=== PATIENT | female | born 1955 | race Caucasian/White ===

== ENCOUNTER 2016-06-18 17:18 | Emergency (ER) | payer OTHER ==
--- NOTE | 2016-06-18 17:55 | EDPHY ---
H & P Stated Complaint: Right Wrist Injury, Fall Time Seen by Provider: 06/18/16 17:20 HPI/ROS: CHIEF COMPLAINT: right wrist pain HISTORY OF PRESENT ILLNESS: 60-year-old female presents emergency department complaining of right wrist pain. Patient slipped on the ice today and fell on right outstretched hand, she had immediate pain and deformity in this right wrist. She denies head strike, no loss of consciousness, no neck pain. She denies elbow pain or shoulder pain, no numbness or tingling in her fingers. She is [id number], denies previous injury to this wrist. REVIEW OF SYSTEMS: A comprehensive 10 point review of systems is otherwise negative aside from elements mentioned in the history of present illness. Source: Patient Exam Limitations: No limitations - Personal History Current Tetanus Diphtheria and Acellular Pertussis (TDAP): Yes Tetanus Vaccine Date: Within 10 years - Medical/Surgical History Hx Asthma: No Hx Chronic Respiratory Disease: No Hx Diabetes: No Hx Cardiac Disease: No Hx Renal Disease: No Hx Cirrhosis: No Hx Alcoholism: No Hx HIV/AIDS: No Hx Splenectomy or Spleen Trauma: No Other PMH: exercise induced asthma/migraines - Social History Smoking Status: Never smoked - Physical Exam Exam: Physical Exam Gen: Alert and Oriented, grimacing HEENT: PERRL, moist mucous membranes NECK: no C-spine tenderness CV: regular rate and regular rhythm PULM: CTAB, no wheezes NEURO: Neurologically grossly intact EXTREMITIES: Right wrist with obvious deformity, diffuse tenderness to palpation , 2+ radial pulses, good radial motor and sensory, cap refill less than 2 seconds. No elbow tenderness SKIN: no rash or break in skin on exposed skin PSYCH: answers questions appropriately. Constitutional: Initial Vital Signs Temperature (C) 36.7 C 06/18/16 17:22 Heart Rate 53 L 06/18/16 17:22 Respiratory Rate 16 06/18/16 17:22 Blood Pressure 137/91 H 06/18/16 17:22 O2 Sat (%) 100 06/18/16 17:22 O2 Delivery Mode Room Air Allergies/Adverse Reactions: cephalexin monohydrate [From Keflex] Allergy (Verified 12/13/15 13:14) Penicillins Allergy (Verified 12/13/15 13:14) Sulfa (Sulfonamide Antibiotics) Allergy (Verified 12/13/15 13:14) Home Medications: Medication Instructions Recorded Celexa 03/11/10 Levothyroxine 03/11/10 2 Migraine Medicine 12/13/15 Ondansetron Odt [Zofran Odt] 4 mg PO Q6-8PRN PRN #8 tab 06/18/16 oxyCODONE/APAP 5/325 [Percocet 1 - 2 tab PO Q6H PRN #12 tab 06/18/16 5/325] Medical Decision Making - Diagnostics Imaging: Right wrist x-ray independently reviewed by me- Impression: Moderately comminuted intra-articular fracture of the distal radius with dorsal angulation and displacement. Dictated By: Bryce Cormier MD Right elbow x-ray independently reviewed by me-no fracture Post reduction right wrist x-ray independently reviewed by me- Procedures: Procedure: Fracture reduction. Indication: Displaced fracture distal radius. Risks, benefits, alternatives discussed with the patient. Consent was obtained. The distal radius fracture was anesthetized using 10 mL of 1% lidocaine without epinephrine hematoma block into the fracture site. Patient was placed in a finger trap and hung with traction for 5 minutes, she was then removed from the finger traps, traction and manipulation manually reduce the fracture, she was placed in a reverse sugar-tong splint. The patient has a normal neurovascular exam distal to the injury post reduction. Patient tolerated the procedure well and is significantly more comfortable. Post reduction x-ray demonstrates reduction of the fracture to the anatomic position. The procedure was performed by myself. A reverse sugar-tong Ortho Glass was applied. After application of the splint , I returned and re-examined the patient. The splint was adequately immobilizing the joint. The patients circulation and sensation were intact distal to the splint. ED Course/Re-evaluation: IV established, patient is given 50 mcg of fentanyl and 4 mg of Zofran for pain and nausea. 6pm-I spoke with Dr. Govea about this patient's fracture. He is recommending reduction and splinting and he will follow up in clinic this week. 630pm-hematoma block performed, distal radius reduced with manual traction and manipulation, reverse sugar-tong splint placed, patient tolerated this well. She will be discharged home with pain medication and information for follow-up for Dr. Henri Saavedra. She is given strict return precautions for any neurovascular compromise. - Data Points Medications Given: Discontinued Medications Fentanyl (Sublimaze) 50 mcg IVP EDNOW ONE Stop: 06/18/16 17:58 Last Admin: 06/18/16 18:10 Dose: 50 mcg Sodium Chloride (Ns) 1,000 mls @ 0 mls/hr IV ONCE ONE PRN Reason: Wide Open Stop: 06/18/16 17:58 Last Admin: 06/18/16 18:05 Dose: 1,000 mls Ondansetron HCl (Zofran) 4 mg IVP EDNOW ONE Stop: 06/18/16 17:58 Last Admin: 06/18/16 18:10 Dose: 4 mg Departure - Departure Disposition: Home, Routine, Self-Care Clinical Impression: Distal radius fracture, right Condition: Good Instructions: Wrist Fracture in Adults (ED) Additional Instructions: Rest, ice, strict elevation above the level of your heart, take 600 mg of ibuprofen every 8 hours with food for 3-5 days, take Percocet as needed for severe pain, take Zofran as needed for nausea. Call office 1st thing in the morning to schedule a follow-up appointment. Return to the emergency department for any numbness or tingling in her hand, discoloration of your hand, pain that is not controlled, any other questions or concerns. Referrals: Xiang Govea MD [Medical Doctor] - As per Instructions (Orthopedist on-call) Prescriptions: oxyCODONE/APAP 5/325 [Percocet 5/325] 1 - 2 tab PO Q6H PRN #12 tab PRN Reason: Pain, Severe Ondansetron Odt [Zofran Odt] 4 mg PO Q6-8PRN PRN #8 tab PRN Reason: Nausea/Vomiting, Can'T Take Po
[2016-06-18] MEDS ORDERED: fentaNYL 100 MCG/2 ML INJ IVP ONE (17:57)
[2016-06-18] MEDS ORDERED: ONDANSETRON 4 MG/2 ML VIAL IVP ONE (17:57)
[2016-06-18] MEDS ORDERED: NS 1,000 ML IV ONE (17:57)
--- NOTE | 2016-06-18 18:25 | DX ---
Right wrist 3 views at 1804 History: Fall on ice today, pain. Comparison: None available. Findings: There is a transverse moderately comminuted intra-articular fracture of the distal radial m etaphysis with moderate dorsal angulation and one half shaft widths dorsal displacement. Alignment is normal. There is diffuse soft tissue swelling. Impression: Moderately comminuted intra-articular fracture of the distal radius with dorsal angulatio n and displacement.
--- NOTE | 2016-06-18 18:28 | DX ---
Right elbow 4 views History: Fall on ice today. Comparison: None available. Findings: No fracture is identified. Alignment is normal. Bone mineralization is normal. There is no significant degenerative change. There is no joint effusion. Impression: No acute osseous findings.
--- NOTE | 2016-06-18 19:28 | DX ---
Right wrist - 2 views at 1849 hours INDICATION: Post reduction. COMPARISON: Right wrist series from less than one hour prior. FINDINGS: The comminuted intra-articular distal radius fracture has been reduced into near anatomic a lignment and placed in a fiberglass splint. IMPRESSION: Near anatomic reduction of comminuted intra-articular distal radius fracture now in splin t.
[2016-06-18 19:29] VITALS: BP 128/74; PULSE 70; RESP 14; TEMP 97.9; O2SAT 94
== END 2016-06-18 19:28 | disposition home or self-care (01) ==
PROC: 0PSHXZZ Reposition Right Radius, External Approach (ICD-10-PCS; principal; 2016-06-18)
DX: S52.571A Other intraarticular fracture of lower end of right radius, initial encounter for closed fracture (principal); W00.0XXA Fall on same level due to ice and snow, initial encounter
CPT/HCPCS: 96374; J2405; J3010

== ENCOUNTER 2016-11-18 19:49 | Emergency (ER) | payer OTHER ==
[2016-11-18] MEDS ORDERED: ONDANSETRON DISINTEGRATING 4 MG TAB ONE (19:58)
[2016-11-18] MEDS ORDERED: ONDANSETRON DISINTEGRATING 4 MG TAB PO ONE (19:59)
--- NOTE | 2016-11-18 20:15 | EDPHY ---
H & P Stated Complaint: ROD, n/v HPI/ROS: CHIEF COMPLAINT: Headache HISTORY OF PRESENT ILLNESS: This is a 61-year-old female with a history of migraine headaches usually relieved by Excedrin migraine medication. She has had a headache today for the last 7 hours. She has taken Excedrin migraine with no relief. She reports nausea, vomiting, photophobia, and phonophobia. Her headache is bitemporal in pounding. It is typical of her previous migraine headaches. She does not usually need emergency department treatment. She denies any recent fever,neck stiffness, confusion, new weakness, or new numbness. REVIEW OF SYSTEMS: A ten point review of systems was performed and is negative with the exception of the items mentioned in the HPI. Source: Patient, Family - Personal History Current Tetanus/Diphtheria Vaccine: Unsure Current Tetanus Diphtheria and Acellular Pertussis (TDAP): Unsure Tetanus Vaccine Date: Within 10 years - Medical/Surgical History Hx Asthma: Yes Hx Chronic Respiratory Disease: No Hx Diabetes: No Hx Cardiac Disease: No Hx Renal Disease: No Hx Cirrhosis: No Hx Alcoholism: No Hx HIV/AIDS: No Hx Splenectomy or Spleen Trauma: No Other PMH: exercise induced asthma/migraines, , groin nodule removal, thyroidectomy, knee and wrist surgery - Social History Smoking Status: Never smoked - Physical Exam Exam: General Appearance: Alert. Vital signs reviewed. Sitting in a darkened room. Eyes: Pupils equal and round. ENT, Mouth: Mucous membranes are moist. Neck: No lymphadenopathy, supple. No meningismus. Respiratory: Lungs are clear to auscultation; no wheezes, rales, or rhonchi. Cardiovascular: Regular rate and rhythm; no murmur, rub, or gallop. Gastrointestinal: Abdomen is soft and nontender, no masses or organomegaly, bowel sounds normal. Skin: Warm and dry, no rashes on exposed skin, normal color. Back: Nontender to palpation over the thoracolumbar spine. No CVAT. Extremities: No lower extremity edema, no calf tenderness or swelling. Neurological: Alert and oriented. Moving all four extremities easily and equally. [place]. EOMI. Facial expressions symmetric. Tongue midline. Strength is 5 over 5 bilaterally with testing of all major motor groups. Sensation is intact to light touch over all 4 extremities. Deep tendon reflexes are 2+ in the biceps and knees bilaterally. Psychiatric: Normal affect. Constitutional: Initial Vital Signs Temperature (C) 36.8 C 11/18/16 19:54 Heart Rate 61 11/18/16 19:54 Respiratory Rate 48 H 11/18/16 19:54 Blood Pressure 131/106 H 11/18/16 19:54 O2 Sat (%) 99 11/18/16 19:54 O2 Delivery Mode Room Air Allergies/Adverse Reactions: cephalexin monohydrate [From Keflex] Allergy (Verified 11/18/16 19:53) Penicillins Allergy (Verified 11/18/16 19:53) Sulfa (Sulfonamide Antibiotics) Allergy (Verified 11/18/16 19:53) Home Medications: Medication Instructions Recorded Celexa 03/11/10 Levothyroxine 03/11/10 Medical Decision Making ED Course/Re-evaluation: 61-year-old female typical migraine. She received 1 L normal saline, IV Reglan 10 mg, Toradol IV 30 mg, and Benadryl IV 25 mg. She was re-evaluated at 9:30 p.m.. She has been sleeping. She tells me that she is feeling better. She would like to rest a bit longer before returning home. 10:20 p.m.: She is up to the bathroom, feeling much better. She feels well enough to return home. She is discharged in improved condition. Differential Diagnosis: Headache including but not limited to subarachnoid hemorrhage, migraine headache , tension headache and infectious causes such as meningitis, pharyngitis and sinusitis. - Data Points Medications Given: Discontinued Medications Diphenhydramine HCl (Benadryl Injection) 25 mg IVP EDNOW ONE Stop: 11/18/16 20:22 Last Admin: 11/18/16 20:40 Dose: 25 mg Sodium Chloride (Ns) 1,000 mls @ 0 mls/hr IV ONCE ONE; Wide Open PRN Reason: Protocol Stop: 11/18/16 20:22 Last Admin: 11/18/16 20:30 Dose: 1,000 mls Ketorolac Tromethamine (Toradol) 30 mg IVP EDNOW ONE Stop: 11/18/16 20:22 Last Admin: 11/18/16 20:35 Dose: 30 mg Metoclopramide HCl (Reglan Injection) 10 mg IVP EDNOW ONE Stop: 11/18/16 20:22 Last Admin: 11/18/16 20:38 Dose: 10 mg Ondansetron HCl (Zofran Odt) 4 mg PO EDNOW ONE Stop: 11/18/16 20:00 Last Admin: 11/18/16 20:00 Dose: 4 mg Departure - Departure Disposition: Home, Routine, Self-Care Clinical Impression: Migraine headache Qualifiers: Migraine type: other Status migrainosus presence: without status migrainosus Intractability: not intractable Qualified Code(s): G43.809 - Other migraine, not intractable, without status migrainosus Condition: Good Instructions: Migraine Headache (ED) Referrals: INGRID MCGEE [Medical Doctor] - As per Instructions
[2016-11-18] MEDS ORDERED: NS 1,000 ML IV ONE (20:21)
[2016-11-18] MEDS ORDERED: METOCLOPRAMIDE 10 MG/2 ML VIAL IVP ONE (20:21)
[2016-11-18] MEDS ORDERED: KETOROLAC 30 MG/1 ML SDV IVP ONE (20:21)
[2016-11-18 22:22] VITALS: RESP 16; O2SAT 98
[2016-11-18 22:30] VITALS: BP 129/76; PULSE 61; TEMP 97.9
== END 2016-11-18 22:29 | disposition home or self-care (01) ==
DX: G43.809 Other migraine, not intractable, without status migrainosus (principal); J45.909 Unspecified asthma, uncomplicated; E86.9 Volume depletion, unspecified
CPT/HCPCS: 96374; J1200; J1885; J2765

== ENCOUNTER → 2017-02-19 | Outpatient (CLI) | payer OTHER | LOC: FIMAGING 08:15 | PROVIDERS: ATTEND Family Medicine | DX: Z12.31 Encounter for screening mammogram for malignant neoplasm of breast (principal); Z80.3 Family history of malignant neoplasm of breast | CPT/HCPCS: G0202 ==

== ENCOUNTER → 2018-03-13 | Outpatient (CLI) | payer OTHER | LOC: FIMAGING 12:34 | PROVIDERS: ATTEND Family Medicine | DX: Z12.31 Encounter for screening mammogram for malignant neoplasm of breast (principal); Z80.3 Family history of malignant neoplasm of breast ==

== ENCOUNTER 2018-08-24 18:38 | Emergency (ER) | payer OTHER ==
--- NOTE | 2018-08-24 18:41 | EDPHY ---
H & P Time Seen by Provider: 08/24/18 18:40 - Personal History Tetanus Vaccine Date: Within 10 years - Medical/Surgical History Hx Asthma: Yes Hx Chronic Respiratory Disease: No Hx Diabetes: No Hx Cardiac Disease: No Hx Renal Disease: No Hx Cirrhosis: No Hx Alcoholism: No Hx HIV/AIDS: No Hx Splenectomy or Spleen Trauma: No Other PMH: exercise induced asthma/migraines, , groin nodule removal, thyroidectomy, knee and wrist surgery - Social History Smoking Status: Never smoked Constitutional: Initial Vital Signs Temperature (C) 36.9 C 08/24/18 18:45 Heart Rate 65 08/24/18 18:45 Respiratory Rate 16 08/24/18 18:45 Blood Pressure 183/94 H 08/24/18 18:45 O2 Sat (%) 97 08/24/18 18:45 O2 Delivery Mode Room Air Allergies/Adverse Reactions: cephalexin monohydrate [From Keflex] Allergy (Verified 11/18/16 19:53) Penicillins Allergy (Verified 11/18/16 19:53) Sulfa (Sulfonamide Antibiotics) Allergy (Verified 11/18/16 19:53) Home Medications: Medication Instructions Recorded Celexa 03/11/10 Levothyroxine 03/11/10 Fioricet (*) 08/24/18 Zofran 08/24/18 Medical Decision Making ED Course/Re-evaluation: CHIEF COMPLAINT: Migraine headache HISTORY OF PRESENT ILLNESS: The patient is a 62 y/o female with a history of migraines complaining of a migraine today. For the last 5 to 6 years she has had migraines. Due to the migraines she takes Fioricet and Zofran as prescribed by her PCP. Today she developed a migraine, but her medications did not alleviate it. She deneis seeing a neurologist for her migraines. No fever, body aches, lightheadedness, chest pain, heart palpitations, shortness of breath, cough, abdominal pain, urinary or bowel complaints, numbness, paresthesias. REVIEW OF SYSTEMS: A comprehensive 10 system review of systems is otherwise negative aside from elements mentioned in the history of present illness and medical decision making. PHYSICAL EXAM: HR, BP, O2 Sat, RR. Temp noted General Appearance: Photophobic, tearful, alert, well hydrated, appropriate, and non-toxic appearing. Head: Atraumatic without scalp tenderness or obvious injury Eyes: Pupils equal, round, reactive to light and accommodation, EOMI, no trauma , no injection. Ears: Clear bilaterally, no perforation, normal landmarks Nose: Atraumatic, no rhinorrhea, clear. Throat: There is no erythema or exudates, no lesions, normal tonsils, mucus membranes moist. Neck: Supple, 2+ carotid upstroke, nontender, no lymphadenopathy. Respiratory: No retractions, no distress, no wheezes, and no accessory muscle use. Lungs are clear to auscultation bilaterally. Cardiovascular: Regular rate and rhythm, no murmurs, rubs, or gallops. Bilateral carotid, radial, dorsalis pedis, and posterior tibial pulses intact. Good capillary refill all extremities. Gastrointestinal: Abdomen is soft, nontender, non-distended, no masses, no rebound, no guarding, no peritoneal signs. Musculoskeletal: Normal active ROM of all extremities, atraumatic. Neurological: Alert, appropriate, and interactive. The patient has normal DTRs and non-focal cranial nerves, motor, sensory, and cerebellar exam. Skin: No rashes, good turgor, no nodules on palpation. Past medical history: Asthma, migraines Past surgical history: , groin nodule removal, thyroidectomy, knee and wrist surgery Family history: Denies Social history: Friend at bedside, lives in [place], employed as a professor DIAGNOSTICS/PROCEDURES/CRITICAL CARE TIME: Not indicated. DIFFERENTIAL DIAGNOSIS: The differential diagnosis for the patient's headache included but was not limited to subarachnoid hemorrhage, migraine headache, tension headache and infectious causes such as meningitis, pharyngitis and sinusitis. MEDICAL DECISION MAKING: The patient is a 62 y/o female with a history of migraines presenting with a migraine today. Due to the migraines she takes Fioricet and Zofran as prescribed by her PCP. Today she developed a migraine, but her medications did not alleviate it. On exam she is photophobic and tearful. Migraine cocktail administered. Laboratory and imaging studies are not indicated. 1920: Reassessed patient, her headache is 85% improved. Additional Reglan administered. 1942: Reassessed patient, she is feeling much better. I have advised her to follow up with a neurologist and discuss taking Aimovig. Return precautions provided; patient is comfortable with this plan. - Data Points Medications Given: Discontinued Medications Dexamethasone (Decadron Injection) 10 mg IVP EDNOW ONE Stop: 08/24/18 18:45 Last Admin: 08/24/18 18:55 Dose: 10 mg Ketorolac Tromethamine (Toradol) 30 mg IVP EDNOW ONE Stop: 08/24/18 18:45 Last Admin: 08/24/18 18:54 Dose: 30 mg Metoclopramide HCl (Reglan Injection) 10 mg IVP EDNOW ONE Stop: 08/24/18 18:45 Last Admin: 08/24/18 18:51 Dose: 10 mg Metoclopramide HCl (Reglan Injection) 5 mg IVP EDNOW ONE Stop: 08/24/18 19:21 Last Admin: 08/24/18 19:34 Dose: 5 mg Ondansetron HCl (Zofran) 4 mg IVP EDNOW ONE Stop: 08/24/18 18:45 Last Admin: 08/24/18 18:51 Dose: 4 mg Departure - Departure Disposition: Home, Routine, Self-Care Clinical Impression: Migraine Qualifiers: Migraine type: with aura Status migrainosus presence: without status migrainosus Intractability: intractable Qualified Code(s): G43.119 - Migraine with aura, intractable, without status migrainosus Condition: Good Instructions: Migraine Headache (ED) Additional Instructions: 1. Follow up with a neurologist within one week. Make sure to discuss Aimovig, the migraine preventative medication, with the neurologist. 2. Return to the emergency department immediately for recurrence of headache, nausea, vomiting, numbness, weakness, neck pain, fever or other concerns. Referrals: INGRID MCGEE [Primary Care Provider] - As per Instructions Paul Krishnan MD [Medical Doctor] - As per Instructions Report Scribed for: Ruben Novak Report Scribed by: Ivone Manriquez Date of Report: 08/24/18 Time of Report: 18:42
[2018-08-24] MEDS ORDERED: ONDANSETRON 4 MG/2 ML VIAL IVP ONE (18:44)
[2018-08-24] MEDS ORDERED: METOCLOPRAMIDE 10 MG/2 ML VIAL IVP ONE ×2 (18:44→19:20)
[2018-08-24] MEDS ORDERED: KETOROLAC 30 MG/1 ML SDV IVP ONE (18:44)
[2018-08-24] MEDS ORDERED: DEXAMETHASONE 10 MG/ML VIAL IVP ONE (18:44)
[2018-08-24 19:54] VITALS: BP 134/84
== END 2018-08-24 19:53 | disposition home or self-care (01) ==
DX: G43.119 Migraine with aura, intractable, without status migrainosus (principal)
CPT/HCPCS: 96374; J1100; J1885; J2405; J2765